=== PATIENT | male | born 1985 | race Caucasian/White ===

== ENCOUNTER → 2022-10-11 13:26 | Outpatient (CLI) | payer BC, SELFPAY ==
--- NOTE | ~2022-10-11 | MR_ITS ---
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 TECHNIQUE: Magnetic resonance imaging (MRI) of the left ankle was performed without intravenous contr ast. Sequences included sagittal, coronal, and axial proton-density weighted fast spin echo without a nd with fat saturation. COMPARISON: None. FINDINGS: Medial ankle ligaments: Deep and superficial deltoid ligaments as well as the spring ligament are normal. Lateral ankle ligaments: The anterior and posterior inferior tibiofibular ligaments are normal. The anterior talofibular and c alcaneofibular ligaments are normal. There is thickening and prominent increased intrasubstance signa l along the otherwise intact appearing posterior talofibular ligament fibers particularly along the f ibular side of the ligament which could be seen with low-grade sprain although this would be an atypi charles injury pattern. Alternatively this could represent enthesitis and surrounding synovitis such as i n the setting of provided history of gout. Tendons: There are small enthesophytes at the calcaneal insertion of the otherwise normal Achilles tendon.. Th e peroneus longus and brevis tendons are normal. The tibialis anterior and extensor hallucis longus a nd extensor digitorum longus tendons are normal. The tibialis posterior, flexor digitorum longus and flexor hallucis longus tendons are normal. Plantar fascia: Plantar aponeurosis is normal. Bones/other: Bone alignment is normal. No fracture. There is subtle flattening of the articular cortex along the m edial margin of the talar dome. Beginning at this location and extending posterolaterally across the the talar dome is a band of high-grade chondral malacia with chondral fissuring and underlying subart icular edema-like and cystlike changes. There is additional T2 hyperintense likely intraosseous cyst with thin peripheral linear low signal intensity likely sclerotic margin which measures 2.0 x 0.4 x 0 .8 cm along the lateral margin of the posterior tuberosity of the calcaneus. The overlying cortex adri ears intact which would argue against erosion. No other lesions suspicious for erosions identified. N o pathologic marrow replacing process. Fluid: Is a large amount fluid in the joint spaces. IMPRESSION: 1. Mild ankle joint osteoarthritis with band of high-grade chondromalacia along the talar dome and sm all region of flattening of the articular cortex along the medial rim which could represent either an old impaction fracture or chronic collapsed osteochondral lesion. 2. Mild thickening and increased signal particularly fibular side of the posterior talofibular ligame nt which could be an atypical location for sprain. Suspicion for appendicitis changes in the setting of the provided history of gout. 3. 2.0 x 0.4 x 0.8 cm T2 hyperintense nonaggressive appearing lytic lesion at the lateral aspect of t he posterior tuberosity of the calcaneus which could represent an intraosseous ganglion cyst versus l ess likely an erosion given the intact overlying cortex. Reviewed, dictated and finalized at location A. IMPRESSION: 1. Mild ankle joint osteoarthritis with band of high-grade chondromalacia along the talar dome and small region of flattening of the articular cortex along th e medial rim which could represent either an old impaction fracture or chronic collapsed osteochondral lesion. 2. Mild thickening and increased signal particularly fibular side of the colleter ior talofibular ligament which could be an atypical location for sprain. Suspic ion for appendicitis changes in the setting of the provided history of gout. 3. 2.0 x 0.4 x 0.8 cm T2 hyperintense nonaggressive appearing lytic les
== END ==
PROVIDERS: PCP Family Medicine; Visit Provider Family Medicine
DX: M1A.0720 Idiopathic chronic gout, left ankle and foot, without tophus (tophi) (principal); G89.29 Other chronic pain; M19.072 Primary osteoarthritis, left ankle and foot
CPT/HCPCS: 73721

== ENCOUNTER 2024-10-23 14:24 | Emergency (ER) | payer BC, SELFPAY ==
--- OUTSIDE RECORDS SUMMARY | 2024-10-23 14:26 | XMS_ITS | Clinical Summary ---
Author Organization [facility] Address [address] [place] [id number] Care Team Providers Care Crime Prevention Police Officer Name Role Phone Fan Morillo MD Primary Care Provider [phone] [facility] [phone] Allergies No known active allergies Medications colchicine (COLCRYS) 0.6 mg tablet 2 tabs po X once and then 1 tab one hour later X 1. Wait until next day to start again. 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 Dyshidrotic eczema 07/28/2014 Allergic rhinitis 11/13/2012 Obesity 10/13/2012 Sciatica 11/21/2010 Overview (07/09/2022): Laterality: Left Surgical History Surgery Date Site/Laterality Comments COLONOSCOPY 05/26/2015 - 05/25/2016 FISTULA REPAIR 05/26/2015 - 05/25/2016 fistulectomy Medical History Medical History Date Comments Gout Family History Medical History Relation Name Comments Hypertension Father Hypertension Mother Relation Name Status Comments Father Mother Social History Tobacco Use Types Packs/Day Years Used Date Smoking Tobacco: Never Smokeless Tobacco: Never Personal Safety Answer Date Recorded Getting School Help Needed Not on file 05/17 Sex and Gender Information Value Date Recorded Sex Assigned at Not on file Legal Sex Male 3:56 PM TELESALES ADVISOR Gender Identity Not on file Sexual Orientation Not on file Obstetrics History Last Filed Vital Signs Vital Sign Reading Time Taken Comments Blood Pressure 126/90 10/11/2019 10:39 AM CDT Pulse 59 10/11/2019 10:39 AM CDT Temperature 36.7 C (98.1 F) 10/11/2019 10:39 AM CDT Respiratory Rate - - Oxygen Saturation 97% 10/11/2019 10:39 AM CDT Inhaled Oxygen Concentration - - Weight 113.4 kg (250 lb) 07/09/2022 12:14 PM TELESALES ADVISOR Height 190.5 cm (6' 3) 07/09/2022 12:14 PM TELESALES ADVISOR Body Mass Index 31.25 07/09/2022 12:14 PM TELESALES ADVISOR Plan of Treatment Health Maintenance Due Date Last Done Comments Depression Screening 1984 Hepatitis C Screening 1984 Regular Well Visit/Exam 18-64 2002 DTaP/Tdap/Td Vaccine (7 - Td or Tdap) 11/13/2022 11/13/2012, 12/02/1998, 11/25/1989, Additional history exists Influenza Vaccine (Season Ended) 2025 03/06/2020, 02/23/2015, 02/23/2015, Additional history exists Varicella Vaccines Completed 08/03/1992, 03/16/1986 Hepatitis B Screening Completed 06/07/1999 , 01/03/1999, 12/02/1998 HPV Vaccines Aged Out No longer eligi ble based on patient's age to complete this topic Pneumococcal vaccine <65 Aged Out No longer eligible based on patient's age to complete this topic Insurance [facility] Care Teams Crime Prevention Police Officer Relationship Specialty Start Date End Date Fan Morillo MD [address] [address] PCP - General 04/28/19 Santhosh Rey MD [address] [address] Referring Physician Surgery 05/05/19
--- OUTSIDE RECORDS SUMMARY | 2024-10-23 14:26 | XMS_ITS | Referral Summary ---
Author Organization [facility] Address [address] [place] [id number] Care Team Providers Care Print Production Manager Name Role Phone Fan Morillo MD Primary Care Provider [phone] [facility] [phone] Allergies No known active allergies Medications [...] 10/13/2012 Sciatica 11/21/2010 Overview (07/09/2022): Laterality: Left Social History Tobacco Use Types Packs/Day Years Used Date Smoking Tobacco: Never Smokeless Tobacco: Never Personal Safety Answer Date Recorded Getting School Help Needed Not on file 05/17 Sex and Gender Information Value Date Recorded Sex Assigned at Not on file Legal Sex Male 3:56 PM STONE SETTER Gender Identity Not on file Sexual Orientation Not on file Last Filed Vital Signs Vital Sign Reading Time Taken Comments Blood Pressure 126/90 10/11/2019 10:39 AM CDT Pulse 59 10/11/2019 10:39 AM CDT Temperature 36.7 C (98.1 F) 10/11/2019 10:39 AM CDT Respiratory Rate - - Oxygen Saturation 97% 10/11/2019 10:39 AM CDT Inhaled Oxygen Concentration - - Weight 113.4 kg (250 lb) 07/09/2022 12:14 PM STONE SETTER Height 190.5 cm (6' 3) 07/09/2022 12:14 PM STONE SETTER Body Mass Index 31.25 07/09/2022 12:14 PM STONE SETTER Plan of Treatment Not on file Insurance [employer] [place] Member Subscriber Plan / Payer ( fective 2015-Present) Name:Inder Jo R Relation to Subscriber:Self Name:Inder Jo Payer ID:[id number] (NAIC) Group ID:[id number] Type: OTHER Address: [address] [place] [id number] [employer] [place] Member Subscriber Plan / Payer ( fective 2015-Present) Name:Inder Jo R Relation to Subscriber:Self Name:Inder Jo Payer ID:[id number] (NAIC) Group ID:[id number] Type: OTHER Address: [address] [place] [id number] Care Teams Print Production Manager Relationship Specialty Start Date End Date Fan Morillo MD [address] [facility] [address] [place] [address] PCP - General 04/28/19 Santhosh Rey MD [address] [facility] [address] [place] [address] Referring Physician Surgery 05/05/19
--- NOTE | 2024-10-23 14:27 | ED_ITS ---
HPI - Back Pain/Injury General Chief Complaint: Back Pain/Injury Stated Complaint: Lower Back Pain patient presents to the [facility] with complaints of left-sided lower back pain that radiates into the buttocks and down the back of left thigh that increased today. Patient reports he has been dealing with the buttocks pain down his left thigh for quite a while on and off currently going to the chiropractor and recently completed a round of prednisone which did not help the symptoms. Patient reports he was bending over to tie his shoes today and felt increased pain to the area. Now when he is sitting for even more than 5-10 minutes notices left foot numbness. Once he lays flat on his stomach this completely resolves. Patient reports he has had MRIs of his lumbar spine and noted bulging discs but has been able to use strength training and chiropractic keep this pain and symptoms under control. Denies any fall or car accident today or recently. Denies any difficulty with urinary symptoms or bowel movements. Related Data Home Medications ?Medication ?Instructions ?Recorded ?Confirmed ?Last Taken ?Type rosuvastatin 20 mg tablet mg 10/23/24 Unknown History Allergies Allergy/AdvReac Type Severity Reaction Status Date / Time No Known Allergies Allergy Verified 10/23/24 14:28 Review of Systems Constitutional: Constitutional: Reports as per HPI, Denies chills, Denies fatigue, Denies fever(s) and Denies weakness Cardiovascular: Cardiovascular: Reports no additional cardiovascular complaints Respiratory: Respiratory: Reports no additional respiratory complaints Gastrointestinal: Gastrointestinal: Reports as per HPI, Denies no additional gastrointestinal complaints, Denies abdominal pain, Denies constipation, Denies heartburn and Denies diarrhea Genitourinary: Genitourinary: Reports as per HPI, Denies testicular pain, Denies urinary frequency and Denies urinary incontinence Musculoskeletal: Musculoskeletal: Reports as per HPI and Reports back pain Comments: radiation of pain to left buttocks and down left leg Integumentary/Breasts: Skin/Breast: Reports as per HPI, Denies erythema and Denies rash Neurologic: Reports as per HPI, Denies dizziness, Denies focal weakness, Reports numbness ( intermittent when sitting for greater than 5-10 minutes left foot) and Denies weakness Psychiatric: Psychiatric: Reports no additional psychiatric complaints Endocrine: Endocrine: Reports no additional endocrine complaints Hematologic/Lymphatic: Hematologic/Lymphatic: Reports no additional hematologic/lymphatic complaints Allergic/Immunologic: Allergic/Immunologic: Reports no additional allergic/immunologic complaints Exam Const: General: healthy appearing and alert; No diaphoretic or ill appearing Nutritional Appearance: well nourished Orientation/consciousness: patient oriented x3 Limitations: physical limitations Other: uncomfortable/obvious pain Resp: Effort & Inspection: normal respiratory effort Cardio: Rate: regular rate Back/Spine/Pelvis: Back: no CVA tenderness Other: tenderness over L4-L5, left sciatic notch tenderness, pedal pulses palpable 2+. unable to perform straight leg raise is due to pain with sitting. paraspinal left-sided lumbar muscle pain. Spasms left-sided lumbar Skin: General skin exam: normal color Rashes: no rashes Wounds: no wounds Neuro: General: patient oriented x3, moves all extremities and no focal motor deficits Speech: normal speech Gait exam (Neuro): gait abnormal Course Course Level of Care: Express Care Visit Vital Signs Vital signs: Vital Signs Temperature 97.6 F 10/23/24 14:32 Pulse Rate 83 10/23/24 14:32 Respiratory Rate 20 10/23/24 14:32 Blood Pressure 156/101 H 10/23/24 14:32 Pulse Oximetry 100 10/23/24 14:32 Oxygen Delivery Room Air 10/23/24 14:32 Temperature 97.6 F 10/23/24 14:32 Pulse Rate 83 10/23/24 14:32 Respiratory Rate 20 10/23/24 14:32 Blood Pressure 156/101 H 10/23/24 14:32 Pulse Oximetry 100 10/23/24 14:32 Oxygen Delivery Room Air 10/23/24 14:32 MDM - Back Pain/Injury MDM Narrative Medical decision making narrative: recent Steroid pack without relief. noted no urinary or bowel movement incontinence or difficulty spoke with patient about likely need for physical therapy and/or repeat MRI. Will give patient dexamethasone and Toradol while in the office and at home continue anti-inflammatory medications and add muscle relaxers. minimal relief of pain but noted able to flip to lying on back without difficulty. Noted that this medication does take 30-60 minutes to reach full potential Discharge instructions reviewed with patient, as well as provided in writing per nursing staff. The instructions also include specific and strict return/GO TO THE ER as well as f/u information. All questions have been answered, and the patient deny any further questions with discharge and discharge plan. Differential Diagnosis Differential diagnosis: Likely lumbar radiculopathy, sciatica, strain of lumbar region and discitis Medical Records Attestation: I reviewed the patient's medical records. Discharge Plan Discharge Clinical Impression: Lumbar radiculopathy, Sciatica Patient Disposition: Home Condition: Stable Instructions: Antibiotic Form Additional Instructions: you were given injection of a steroid and anti-inflammatory here at the [facility]. Do not take any other anti-inflammatory medications for 8 hours today. Take naproxen as directed to decrease inflammation and to help pain. Take tizanidine (muscle relaxer) as directed. Do not drink, drive, operate machinery, or do anything dangerous while taking this medication Exercise: Please rest for 2 days then begin more specific sciatica type stretches.Combine aerobic exercise, like walking or swimming, with specific exercises to keep the muscles in your back and abdomen strong and flexible. Proper Lifting:Be sure to lift heavy items with your legs, not your back. Do not bend over to pick something up. Keep your back straight and bend at your knees. Weight:Maintain a healthy weight. Being overweight puts added stress on your lower back. Avoid Smoking:Both the smoke and the nicotine cause your spine to age faster than normal. Proper Posture:Good posture is important for avoiding future problems. A therapist can teach you how to safely stand, sit, and lift. Use warm moist heat to help with pain. Follow up with Primary provider in 2-3 days, This may become a chronic condition and they will be the one to help manage your pain and order additional testing. Follow-up with your doctor for further care and evaluation or seek ER if you develop problems with bladder/bowel function, weakness or loss of feeling in one or both of your legs. Patient Language: German Prescriptions: New naproxen 500 mg tablet 500 mg PO BID PRN (Reason: pain) Qty: 30 0RF tizanidine 4 mg tablet 4 mg PO Q8H PRN (Reason: muscle spasticity) Qty: 30 0RF No Action rosuvastatin 20 mg tablet Follow-up/Referrals: Ilia,Fan Rodriguez MD [Primary Care Provider] - Time of Disposition: 15:11
[2024-10-23 14:32] VITALS: BP 156/101; PULSE 83; RESP 20; TEMP 36.4; O2SAT 100
[2024-10-23] MEDS: dexAMETHasone SOD PHOS INJ 10 MG/ML 1 ML VIAL 8 MG IM (14:55)
[2024-10-23] MEDS: KETOROLAC (*BKC) 60 MG/2 ML VIAL IM (14:56)
== END 2024-10-23 15:17 | disposition home or self-care (01) ==
PROVIDERS: Emergency Provider Nurse Practitioner Family; PCP Family Medicine
DX: M54.16 Radiculopathy, lumbar region (principal); M54.32 Sciatica, left side
CPT/HCPCS: 96372; 99214; G0463; J1100; J1885